=== PATIENT | female | born 1985 | race Caucasian/White ===

== ENCOUNTER 2022-12-11 11:15 | Emergency (ER) | payer OTHER, SELFPAY ==
[2022-12-11] VITALS (10 sets, daily range): BP systolic 137–159; BP diastolic 83–107; PULSE 74–93; RESP 12–22; TEMP 36.6–36.8; O2SAT 97–99; BMI 36.8
--- NOTE | 2022-12-11 11:12 | ECG_ITS ---
APPROVED REPORT Exam: Resting ECG HR:86 bpm ECG Measurements Heart Rate 86 AXES WY 148 P 62 QRSd 92 QRS 55 QT 351 T 43 QTc 394 Conclusion SINUS RHYTHM WITH SINUS ARRHYTHMIA NORMAL ECG UNCONFIRMED REPORT Electronically signed by : Bar Johnston MD 12/12/2022 21:20:31
--- NOTE | 2022-12-11 11:28 | PC.NURSE ---
DR LÓPEZ AT BEDSIDE
--- NOTE | 2022-12-11 11:51 | XR_ITS ---
FINAL REPORT CLINICAL HISTORY: chest pain mid chest pain smoker shielded FINDINGS: A portable view of the chest is obtained. Cardiac and mediastinal silhouettes are normal. The lungs are clear. There is no pleural effusion or pneumothorax. IMPRESSION: No acute process on this portable exam. Reviewed, Interpreted and Dictated by Yudelka Cho MD Transcribed by Zacarias Atkins Authenticated and [facility]
[2022-12-11 12:01] LABS: Basophils % 0.4 % (0.1-2.0); Eosinophils # 0.2 K/mm3 (0.0-0.4); Eosinophils % 1.6 % (0.1-12.0); Hematocrit 46.4 % (37.0-47.0); Hemoglobin 15.5 g/dL (12.2-16.2); Lymphocytes # 2.1 K/mm3 (0.7-4.5); Lymphocytes % 20.7 % (10-50); Mean Corpuscular HGB Conc 33.4 g/dL (31.8-35.4); Mean Corpuscular Volume 89.9 fl (81-99); Mean Platelet Volume 8.8 fl (7.4-10.4); Monocytes # 0.4 K/mm3 (0.1-1.0); Monocytes % 4.3 % (1.7-9.3); Neutrophils # 7.6 K/mm3 (1.8-7.8); Platelet Count 224 K/mm3 (142-424); Red Blood Count 5.16 M/mm3 (4.20-5.40); Red Cell Distribution Width 12.7 % (11.5-17.5); White Blood Count 10.3 K/mm3 (4.8-10.8)
[2022-12-11 12:02] LABS: Chloride 103 mmol/L (98-107)
[2022-12-11 12:03] LABS: Potassium 3.9 mmoL/L (3.5-5.1); Sodium 140 mmol/L (136-145)
[2022-12-11 12:05] LABS: Alanine Aminotransferase 40 U/L (12-78); Alkaline Phosphatase 70 U/L (38-126); Aspartate Amino Transferase 31 U/L (14-36); Bilirubin,Total 0.7 mg/dl (0.2-1.3); Blood Urea Nitrogen 10 mg/dl (7-17); Creatinine Clearance Estimated 191 mL/min (50-200); Estimated Glomerular Filt Rate 96 ml/min (>60); GFR (African American) 116 ML/MIN (>60)
[2022-12-11 12:06] LABS: Albumin Level 4.8 g/dl (3.5-5.0); Albumin/Globulin Ratio 1.4 (1.1-1.8); Anion Gap 13.9 mEq/L (5-15); Calcium 9.5 mg/dl (8.4-10.2); Carbon Dioxide 27 mmol/L (22.0-30.0); Globulin 3.4 g/dL (1.3-3.2); Glucose 102 mg/dl (74-100); Total Protein,Serum 8.2 g/dl (6.3-8.2)
[2022-12-11 12:26] LABS: Troponin I < 0.01 ng/ml (0.00-0.034)
--- NOTE | 2022-12-11 13:19 | PC.NURSE ---
DR LÓPEZ SPEAKING WITH TOMMY SETHI FROM CARDIOLOGY
--- NOTE | 2022-12-11 13:30 | PC.NURSE ---
Rounded on patient; patient stated she does not want to be here any long. Informed patient cardiology would be rounding on her; Cardiology @ [facility]
--- NOTE | 2022-12-11 13:30 | PC.NURSE ---
TOMMY SETHI AT BEDSIDE
--- NOTE | 2022-12-11 13:30 | PC.NURSE ---
Yohan Prather at bedside.
--- NOTE | 2022-12-11 13:39 | PC.NURSE ---
[facility] NOTIFIED OF ECHO ORDER
--- NOTE | 2022-12-11 14:00 | PC.NURSE ---
network technician @ [facility]
--- NOTE | 2022-12-11 14:03 | EXP.CARD.CON ---
History of Present Illness History of Present Illness Consult date: 12/11/22 Requesting physician: Padilla Ghotra Consult reason: chest pain Chief complaint: chest pain Additional Medical History:: 1. 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 Tobacco use History of present illness: 36-year-old white female came to the emergency department for evaluation of sudden onset of substernal chest discomfort this a.m. while at work. No radiation of symptoms and no recent illness, fever or chills. EKG is sinus rhythm with early repolarization changes and initial troponin is normal. There is some tenderness to chest wall palpation but it seems to be different than the symptoms she is feeling. Due to 50 pound weight loss over the last 5 years patient has been on phentermine for about 5 months now. She denies any GI symptoms such as vomiting or GERD. [facility] Disclaimer: The information contained in this section may have been updated after the patient was seen, as this information can be updated by other users. Surgical History (Updated 12/11/22 @ 11:26 by Francine Fields RN) History of knee surgery Hx of tonsillectomy Family History (Updated 12/11/22 @ 11:26 by Francine Fields RN) No significant family history Social History (Updated 12/11/22 @ 11:26 by Francine Fields RN) Smoking Status: Current every day smoker alcohol intake: never current occupational status: employed Travel in the last 8 weeks: Inside the [place] Review of Systems Review of Systems Review of systems:: pertinent systems reviewed and negative unless documented below *Cardiovascular Cardiovascular: Reports chest pain and Denies dyspnea *Respiratory Respiratory: Denies cough, Denies dyspnea and Denies wheezing *Gastrointestinal Gastrointestinal: Denies vomiting Allergic/Immunologic Allergic/Immunologic: Denies wheezing Exam Data for Last 24 hours Vital signs and Labs for Last 24 Hours: Temp Pulse Resp BP Pulse Ox O2 Del Method 98.3 F 74 18 153/99 H 98 Room Air 12/11/22 11:16 12/11/22 13:31 12/11/22 13:31 12/11/22 13:31 12/11/22 13:31 12/11/22 13:31 Laboratory Results - last 24 hr 12/11/22 11:17: WBC 10.3, RBC 5.16, Hgb 15.5, Hct 46.4, MCV 89.9, MCH 30.0, MCHC 33.4, RDW 12.7, Plt Count 224, MPV 8.8, Neut % (Auto) 73.0, Lymph % (Auto) 20.7, Webster % (Auto) 4.3, Eos % (Auto) 1.6, Baso % (Auto) 0.4, Neut # (Auto) 7.6, Lymph # (Auto) 2.1, Webster # (Auto) 0.4, Eos # (Auto) 0.2, Baso # (Auto) 0.0, Sodium 140, Potassium 3.9, Chloride 103, Carbon Dioxide 27, Anion Gap 13.9, BUN 10, Creatinine 0.70, Estimated Creat Clear 191, Estimated GFR 96, Est GFR ( Amer) 116, Glucose 102 H, Calcium 9.5, Total Bilirubin 0.7, AST 31, ALT 40, Alkaline Phosphatase 70, Troponin I < 0.01, Total Protein 8.2, Albumin 4.8, Globulin 3.4 H, Albumin/Globulin Ratio 1.4 I & O for Last 24 hours: Intake & Output 12/09/22 12/10/22 12/11/22 12/12/22 11:59 11:59 11:59 11:59 Weight 235 lb Constitutional Constitutional: mild distress *Routine Respiratory Exam Respiratory: Present CTA bilaterally *Routine Cardiovascular Exam Cardiovascular: Present RRR; Absent murmur, gallop or rubs *Routine Extremities Exam Extremities: Absent cyanosis, clubbing or edema Meds Home Medications and Allergies Home Medications Medication Instructions Recorded Confirmed Type phentermine 30 mg capsule 30 mg PO DAILY Weight Loss 12/11/22 12/11/22 History New Prescriptions to Start Prescriptions: Allergies Allergy/AdvReac Type Severity Reaction Status Date / Time No Known Allergies Allergy Verified 12/11/22 11:28 Assessment and Plan *Assessment and plan (1) Chest pain: Status: Acute Qualifiers: Chest pain type: chest pain on breathing Qualified Code(s): R07.1 - Chest pain on breathing Category: Medical Code(s): R07.9 - Chest pain, unspecified (2) Obesity: Status: Acute Qual
--- NOTE | 2022-12-11 14:54 | PC.NURSE ---
Rounded on patient; nothing needed at this time.
--- NOTE | 2022-12-11 15:32 | PC.NURSE ---
MD & Charge nurse @ [facility]
--- NOTE | 2022-12-11 15:35 | PC.NURSE ---
CALLED ECHO TO CHECK AND SEE IF A REPORT IS AVAILABLE. THEY STATED NO. ER AWARE.
[2022-12-11 16:24] LABS: Troponin I < 0.01 ng/ml (0.00-0.034)
--- NOTE | 2022-12-11 18:00 | HMH.EDGENADL ---
Discharge Plan Disposition Patient Disposition: Left Against Medical Advice Prescriptions Prescriptions: No Action phentermine 30 mg Capsule 30 mg PO DAILY Rx Instructions: must administer 2 hours after breakfast Clinical Impressions Clinical Impression: Chest pain Discharge ED Provider: Padilla Ghotra General Adult HPI General Chief complaint: Chest Pain Stated complaint: chest pain Time Seen by Provider: 12/11/22 11:20 Mode of Arrival: Ambulatory Source of Information: Patient Limitations: No Limitations Description of Symptoms (Recalled from ER Triage Doc. by RN): PT C/O MIDSTERNAL CHEST PAIN THAT BEGAN ABOUT 2 HOURS AGO WHILE AT WORK. PT WAS SITTING IN A MEETING. STATES IT FEELS HARD TO BREATHE AND HER HEART IS RACING. PT THOUGHT SHE FELT ANXIOUS History of Present Illness HPI narrative: This 36-year-old female with no chronic medical conditions presents to the emergency department with concerns of midsternal/left-sided chest pain. Patient states she woke up with the symptoms around 6 AM but they have progressively worsened through the day. She states that her chest feels tight and she feels anxious. She states that she has many new stressors at work due to significant managerial changes. She states it is uncomfortable to take a deep breath and she feels like she cannot catch a full breath. She states she has never had similar symptoms in the past. Patient does remark that she recently started on phentermine approximately 8 weeks ago for assistance with weight loss. Patient has no history of blood clot, no recent long distance travel, no pain or swelling in the legs. She denies other review of systems. Related Data Home Medications Medication Instructions Recorded Confirmed phentermine 30 mg capsule 30 mg PO DAILY Weight Loss 12/11/22 12/11/22 Allergies Allergy/AdvReac Type Severity Reaction Status Date / Time No Known Allergies Allergy Verified 12/11/22 11:28 [facility] Disclaimer: The information contained in this section may have been updated after the patient was seen, as this information can be updated by other users. Surgical History (Updated 12/11/22 @ 11:26 by Francine Fields RN) History of knee surgery Hx of tonsillectomy Family History (Updated 12/11/22 @ 11:26 by Francine Fields RN) Other No significant family history Social History (Updated 12/11/22 @ 11:26 by Francine Fields RN) Smoking Status: Current every day smoker alcohol intake: never current occupational status: employed Travel in the last 8 weeks: Inside the [place] ROS Obtained: Yes Systems reviewed as appropriate & no additional complaints except as documented Constitutional Constitutional: Denies chills, Denies fever(s), Denies headache(s) and Denies weakness Eyes Eyes: Denies change in vision ENT Ears, Nose, Mouth, and Throat: Denies dizziness, Denies headache(s), Denies nasal congestion and Denies sore throat Cardiovascular Cardiovascular: Reports as per HPI, Reports chest pain, Reports dyspnea and Denies leg edema Respiratory Respiratory: Reports as per HPI, Denies cough and Reports dyspnea Gastrointestinal Gastrointestingal: Denies constipation, diarrhea, nausea or vomiting Genitourinary Female Genitourinary: Denies dysuria Musculoskeletal Musculoskeletal: Denies arthralgias, Denies myalgias, Denies numbness and Denies tingling Integumentary/Breasts Skin/Breast: Denies change in pigmentation Neurologic Neurologic: Denies dizziness, Denies headache(s), Denies numbness, Denies tingling and Denies weakness Physical Exam General General appearance: alert and anxious Head Head exam: atraumatic and normocephalic Eye Eye exam: Present normal appearance, PERRL and EOMI ENT ENT exam: Present mucous membranes moist Neck Neck exam: Present full ROM Chest Chest inspection: Absent tenderness Respiratory Respiratory exam: Present normal lung sounds bilaterally; Absent res
== END 2022-12-11 15:43 | disposition left against medical advice (07) ==
PROVIDERS: Emergency Provider Emergency Medicine
DX: R07.1 Chest pain on breathing; F17.200 Nicotine dependence, unspecified, uncomplicated
CPT/HCPCS: 71045; 80053; 84484; 85025; 93005; 93306; 99285